=== PATIENT | female | born 2000 ===

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

== ENCOUNTER → 2022-09-15 | Outpatient (CLI) | payer OTHER ==
[2022-09-15 12:06] LABS: Source, Urine Clean Catch
[2022-09-15 15:25] LABS: White Blood Cells, Urine 25-50 /hpf (0-5)
[2022-09-15 15:26] LABS: Bacteria Mod /hpf; Red Blood Cells, Urine 0-2 /hpf (0-2); Renal Epithelial Few /hpf (0-Rare); Squamous Epithelial Cells Mod /hpf (Few)
[2022-09-15 15:31] LABS: U Amphetamine Screen Not Detected; U Barbituate Screen Not Detected; U Benzodiazapine Screen Not Detected; U Buprenorphine Screen Not Detected; U Cannabinoids Screen Not Detected; U Cocaine Screen Not Detected; U Methadone Screen Not Detected; U Methamphetamine Screen Not Detected; U Opiates Screen Not Detected; U Oxycodone Screen Not Detected; U Phencyclidine Screen Not Detected; U Propoxyphene Screen Not Detected
== END ==
LOC: LAB 12:01 → LAB SHORT 12:01
PROVIDERS: Advanced Practice Midwife
DX: Z34.01 Encounter for supervision of normal first pregnancy, first trimester (principal); Z3A.00 Weeks of gestation of pregnancy not specified
CPT/HCPCS: 81015; 87086

== ENCOUNTER → 2022-10-12 | Outpatient (CLI) | payer OTHER ==
[2022-10-14 01:11] LABS: CHLAMYDIA TRACHOMATIS, NAA Negative (Negative)
== END | disposition home or self-care (01) ==
LOC: LAB SHORT 13:17 → LAB 13:17
PROVIDERS: Advanced Practice Midwife
DX: Z11.3 Encounter for screening for infections with a predominantly sexual mode of transmission (principal)
CPT/HCPCS: 87491; 87591

== ENCOUNTER → 2022-10-22 | Outpatient (CLI) | payer OTHER | END | disposition home or self-care (01) | LOC: LAB 13:28 → LAB SHORT 13:28 | DX: R82.90 Unspecified abnormal findings in urine (principal) | CPT/HCPCS: 87086 ==

== ENCOUNTER → 2023-03-31 | Outpatient (CLI) | payer OTHER ==
[2023-04-01 10:34] LABS: Candida species (DNA Probe) Negative (NEGATIVE); G. vaginalis (DNA Probe) Positive (NEGATIVE); T. vaginalis (DNA Probe) Negative (NEGATIVE)
== END | disposition home or self-care (01) ==
LOC: LAB SHORT 12:00 → LAB 12:00
PROVIDERS: Advanced Practice Midwife
DX: O09.93 Supervision of high risk pregnancy, unspecified, third trimester (principal); N89.8 Other specified noninflammatory disorders of vagina
CPT/HCPCS: 87081; 87150; 87480; 87510; 87660

== ENCOUNTER → 2023-04-15 | Outpatient (CLI) | payer OTHER ==
[2023-04-16 10:09] LABS: Candida species (DNA Probe) Negative (NEGATIVE); G. vaginalis (DNA Probe) Negative (NEGATIVE); T. vaginalis (DNA Probe) Negative (NEGATIVE)
== END ==
LOC: LAB SHORT 16:49 → LAB 16:49
PROVIDERS: Advanced Practice Midwife
DX: N89.8 Other specified noninflammatory disorders of vagina (principal)
CPT/HCPCS: 87480; 87510; 87660

== ENCOUNTER 2023-04-20 05:56 | Inpatient (IN) | payer OTHER ==
[2023-04-20] VITALS (44 sets, daily range): BP systolic 113–157; BP diastolic 55–99
[~2023-04-20] VITALS: Ht 160 cm; Wt 72.5 kg
[2023-04-20 06:52] LABS: BASOPHILS ABSOLUTE AUTO 0.05 K/mm3 (0.00-0.23); BASOPHILS PERCENT AUTO 1 % (0-2); EOSINOPHILS PERCENT AUTO 3 % (0-6); Hematocrit 36.6 % (33.0-51.0); Hemoglobin 12.1 g/dL (11.5-16.0); IMMATURE GRAN ABSOLUTE AUTO 0.14 K/mm3 (0.00-0.10); IMMATURE GRAN PERCENT AUTO 2 % (0-1); LYMPHOCYTES ABSOLUTE AUTO 1.39 K/mm3 (0.84-5.20); LYMPHOCYTES PERCENT AUTO 17 % (21-46); MONOCYTES ABSOLUTE AUTO 0.52 K/mm3 (0.16-1.47); MONOCYTES PERCENT AUTO 7 % (4-13); Mean Corpuscular HGB 28.8 pg (26.0-34.0); Mean Corpuscular HGB Conc 33.1 g/dL (31.5-36.5); Mean Corpuscular Volume 87 fL (80-100); NEUTROPHILS ABSOLUTE AUTO 5.73 K/mm3 (1.96-9.15); NEUTROPHILS PERCENT AUTO 71 % (41-73); Platelet Count 147 K/mm3 (150-400); RDW Coefficient Variation 14.6 % (11.7-14.2); RDW Standard Deviation 46.1 fL (35.1-46.3); White Blood Cell Count 8.03 K/mm3 (4.00-11.30)
[2023-04-20] MEDS ORDERED: PRENATAL TABLE1 EAC2 PO (07:44)
--- NOTE | 2023-04-20 18:53 | NUR ---
PT HAS TO VOID, PUT TOWEL WITH PADS UNDER PT, PT RT LEG IS STILL NUMB, ABLE TO LIFT OFF BED, BUT NOT WEIGHT BEARING YET
[2023-04-21 00:48] VITALS: BP 116/58
[2023-04-21 03:36] VITALS: BP 121/56
[2023-04-21 03:41] VITALS: BP 98/52
--- NOTE | 2023-04-21 03:50 | NUR ---
PT CALLED RN TO ROOM WITH COMPLAINTS OF CHEST TIGHTNESS WHEN STANDING/WALKING. RN HAD PT LAY DOWN, RN APPLIED SPO2 MONITOR AND CHECKED BP, LUNG AND HEART SOUNDS NORMAL. PT REPORTS FEELING NORMAL WHEN LAYING/SITTING DOWN.
[2023-04-21 06:08] LABS: BASOPHILS ABSOLUTE AUTO 0.05 K/mm3 (0.00-0.23); BASOPHILS PERCENT AUTO 0 % (0-2); EOSINOPHILS ABSOLUTE AUTO 0.17 K/mm3 (0.00-0.68); EOSINOPHILS PERCENT AUTO 2 % (0-6); Hematocrit 28.9 % (33.0-51.0); Hemoglobin 9.5 g/dL (11.5-16.0); IMMATURE GRAN ABSOLUTE AUTO 0.15 K/mm3 (0.00-0.10); IMMATURE GRAN PERCENT AUTO 1 % (0-1); LYMPHOCYTES ABSOLUTE AUTO 1.73 K/mm3 (0.84-5.20); LYMPHOCYTES PERCENT AUTO 15 % (21-46); MONOCYTES ABSOLUTE AUTO 0.86 K/mm3 (0.16-1.47); MONOCYTES PERCENT AUTO 8 % (4-13); Mean Corpuscular HGB 28.9 pg (26.0-34.0); Mean Corpuscular HGB Conc 32.9 g/dL (31.5-36.5); Mean Corpuscular Volume 88 fL (80-100); Mean Platelet Volume 12.3 fL (9.1-12.4); NEUTROPHILS ABSOLUTE AUTO 8.33 K/mm3 (1.96-9.15); NEUTROPHILS PERCENT AUTO 74 % (41-73); Platelet Count 125 K/mm3 (150-400); RDW Coefficient Variation 14.8 % (11.7-14.2); RDW Standard Deviation 47.4 fL (35.1-46.3); Red Blood Cell Count 3.29 M/mm3 (3.80-5.20); White Blood Cell Count 11.29 K/mm3 (4.00-11.30)
[2023-04-21 07:30] VITALS: BP 126/66
--- NOTE | 2023-04-21 07:38 | NUR ---
PT UP AMBULATING IN ROOM. STATES SHE FEELS A LITTLE BIT BETTER THIS MORNING BUT IS STILL HAVING CHEST TIGHTNESS WHEN SHE IS UP AMBULATING. VSS. BIOX 99%. LUNG SOUNDS CLEAR. WILL UPDATE MD WITH MORNING ROUNDS.
[2023-04-21 11:38] VITALS: BP 111/53
[2023-04-21] MEDS ORDERED: ACET500 (16:33)
[2023-04-21] MEDS ORDERED: IBUP800 PO (16:33)
[2023-04-21 17:00] VITALS: BP 119/57
--- NOTE | 2023-04-21 17:05 | NUR ---
DISCHARGE READY TO DC HOME. CARING FOR SELF AND BABY INDEPENDANTLY. VSS. AFEBRILE. LOCHIA SCANT. VERBALIZE UNDERSTANDING OF DC INSTRUCTIONS AND FOLLOW UP APPOINTMENTS. NO QUESTIONS OR CONCERNS. STABLE.
== END 2023-04-21 17:40 | disposition home or self-care (01) | DRG 807 ==
LOC: OBS 05:56 → BC 05:58 → OBS 06:02 → BC 06:04
PROVIDERS: Family Medicine; ADMIT Advanced Practice Midwife
PROC: 10E0XZZ Delivery of Products of Conception, External Approach (ICD-10-PCS; principal; 2023-04-20)
PROC: 0HQ9XZZ Repair Perineum Skin, External Approach (ICD-10-PCS; 2023-04-20)
PROC: 3E0R3BZ Introduction of Anesthetic Agent into Spinal Canal, Percutaneous Approach (ICD-10-PCS; 2023-04-20)
PROC: 00HU33Z Insertion of Infusion Device into Spinal Canal, Percutaneous Approach (ICD-10-PCS; 2023-04-20)
PROC: 3E033VJ Introduction of Other Hormone into Peripheral Vein, Percutaneous Approach (ICD-10-PCS; 2023-04-20)
PROC: 10907ZC Drainage of Amniotic Fluid, Therapeutic from Products of Conception, Via Natural or Artificial Opening (ICD-10-PCS; 2023-04-20)
DX: O75.3 Other infection during labor (principal); Z37.0 Single live birth; O99.62 Diseases of the digestive system complicating childbirth; O77.0 Labor and delivery complicated by meconium in amniotic fluid; O66.0 Obstructed labor due to shoulder dystocia; K40.90 Unilateral inguinal hernia, without obstruction or gangrene, not specified as recurrent; O70.0 First degree perineal laceration during delivery; O90.81 Anemia of the puerperium; D64.9 Anemia, unspecified; Z3A.39 39 weeks gestation of pregnancy; Z88.2 Allergy status to sulfonamides; Z82.49 Family history of ischemic heart disease and other diseases of the circulatory system; Z98.890 Other specified postprocedural states; Z79.899 Other long term (current) drug therapy
CPT/HCPCS: 36415; 51702; 85025; 86850; 86900; 86901; A9270; J1885; J2405; J2590; J7120

== ENCOUNTER → 2023-11-25 | Outpatient (CLI) | payer BC ==
[~2023-11-25] MED LIST changes: +ACET500; +IBUP800 PO; +PRENATAL TABLE1 EAC2 PO
== END ==
LOC: LAB SHORT 13:56 → LAB 13:56
PROVIDERS: Advanced Practice Midwife
DX: Z01.419 Encounter for gynecological examination (general) (routine) without abnormal findings (principal)
CPT/HCPCS: G0123

== ENCOUNTER 2024-10-21 02:48 | Emergency (ER) | payer BC ==
[~2024-10-21] VITALS: Ht 157.5 cm; Wt 71.7 kg
[2024-10-21 02:55] VITALS: BP 135/76
== END 2024-10-21 04:33 | disposition home or self-care (01) ==
LOC: ER 02:48
DX: O20.0 Threatened abortion (principal); Z3A.21 21 weeks gestation of pregnancy; Z79.899 Other long term (current) drug therapy; Z88.2 Allergy status to sulfonamides
CPT/HCPCS: 76815; 99284-25

== ENCOUNTER → 2025-02-06 | Outpatient (CLI) | payer BC, OTHER | LOC: LAB SHORT 17:04 → LAB 17:04 | DX: Z34.90 Encounter for supervision of normal pregnancy, unspecified, unspecified trimester (principal) | CPT/HCPCS: 87081; 87150 ==

== ENCOUNTER 2025-02-11 22:08 | Inpatient (IN) | payer BC, OTHER ==
[~2025-02-11] VITALS: Ht 157.5 cm; Wt 84.5 kg
[2025-02-11 22:27] VITALS: BP 142/96
[2025-02-11 22:33] VITALS: BP 126/82
[2025-02-12] VITALS (11 sets, daily range): BP systolic 111–142; BP diastolic 58–88
[2025-02-12] MEDS ORDERED: Lactated Ringer's 1,000 ML IV PRN ×2 (03:10)
[2025-02-12] MEDS ORDERED: Lactated Ringer's 1,000 ML IV ONE (03:10)
[2025-02-12] MEDS ORDERED: Acetaminophen 500 MG Tab PO PRN (03:10)
[2025-02-12] MEDS ORDERED: Misoprostol 200 MCG Tab BC PRN (03:10)
[2025-02-12] MEDS ORDERED: Tranexamic Acid 1,000 MG in NS 100 ML IV SCH (03:10)
[2025-02-12] MEDS ORDERED: Ondansetron HCl 2 MG / ML 2ML Vial IV PRN (03:10)
[2025-02-12] MEDS ORDERED: Oxytocin 10 Unit / ML Vial IM PRN (03:10)
[2025-02-12] MEDS ORDERED: OXYTOCIN/RINGER'S LACTATE 500 ML IV PRN (03:10)
[2025-02-12] MEDS ORDERED: ePHEDrine Sulfate 50 MG/ML 1ML Injection XX PRN (03:10)
[2025-02-12] MEDS ORDERED: Carboprost Tromethamine 250 MCG/ML 1ML Amp IM PRN (03:10)
[2025-02-12] MEDS ORDERED: Misoprostol 200 MCG Tab PR PRN (03:10)
[2025-02-12] MEDS ORDERED: Methylergonovine Maleate 0.2MG / ML 1ML Amp IM PRN (03:10)
[2025-02-12] MEDS ORDERED: FentaNYL 2mcg/ml-Bup 0.1% Epd 250 ML EPI PRN (03:10)
[2025-02-12] MEDS ORDERED: FentaNYL Citrate 50 MCG/ML 2 ML Injection IV PRN (03:15)
[2025-02-12] MEDS ORDERED: Calcium Carbonate 500 MG Tab Chew PO PRN (03:15)
[2025-02-12 04:19] LABS: BASOPHILS ABSOLUTE AUTO 0.03 K/mm3 (0.00-0.23); BASOPHILS PERCENT AUTO 0 % (0-2); EOSINOPHILS ABSOLUTE AUTO 0.17 K/mm3 (0.00-0.68); EOSINOPHILS PERCENT AUTO 2 % (0-6); Hematocrit 35.7 % (33.0-51.0); Hemoglobin 11.4 g/dL (11.5-16.0); IMMATURE GRAN ABSOLUTE AUTO 0.07 K/mm3 (0.00-0.10); IMMATURE GRAN PERCENT AUTO 1 % (0-1); LYMPHOCYTES ABSOLUTE AUTO 2.11 K/mm3 (0.84-5.20); LYMPHOCYTES PERCENT AUTO 28 % (21-46); MONOCYTES ABSOLUTE AUTO 0.56 K/mm3 (0.16-1.47); MONOCYTES PERCENT AUTO 7 % (4-13); Mean Corpuscular HGB 25.7 pg (26.0-34.0); Mean Corpuscular HGB Conc 31.9 g/dL (31.5-36.5); Mean Corpuscular Volume 80 fL (80-100); Mean Platelet Volume 12.9 fL (9.1-12.4); NEUTROPHILS ABSOLUTE AUTO 4.69 K/mm3 (1.96-9.15); NEUTROPHILS PERCENT AUTO 62 % (41-73); Platelet Count 153 K/mm3 (150-400); RDW Coefficient Variation 14.4 % (11.7-14.2); RDW Standard Deviation 41.7 fL (35.1-46.3); Red Blood Cell Count 4.44 M/mm3 (3.80-5.20); White Blood Cell Count 7.63 K/mm3 (4.00-11.30)
[2025-02-12] MEDS ORDERED: FAMO20 PO (04:25)
[2025-02-12] MEDS ORDERED: Zolpidem Tartrate 10 MG Tab PO ONE (14:00)
== END 2025-02-12 14:54 | disposition home or self-care (01) | DRG 833 ==
LOC: OBS 22:08 → BC 22:09 → OBS 02-12 02:53 → BC 02-12 02:55
PROVIDERS: ADMIT Family Medicine
DX: O47.1 False labor at or after 37 completed weeks of gestation (principal); Z3A.37 37 weeks gestation of pregnancy; Z88.2 Allergy status to sulfonamides
CPT/HCPCS: 36415; 59025; 81003; 85025; 86850; 86900; 86901; 99214; A9270; J2405; J3010; J7120

== ENCOUNTER 2025-02-20 08:45 | Inpatient (IN) | payer BC, OTHER ==
[2025-02-20] VITALS (32 sets, daily range): BP systolic 107–186; BP diastolic 51–102
[~2025-02-20] VITALS: Ht 157.5 cm; Wt 82.5 kg
[~2025-02-20 08:45] MED LIST changes: +FAMO20 PO
[2025-02-20] MEDS ORDERED: OXYTOCIN/RINGER'S LACTATE 500 ML IV ONE (08:53)
[2025-02-20] MEDS ORDERED: Lactated Ringer's 1,000 ML IV ONE (08:53)
[2025-02-20] MEDS ORDERED: Lactated Ringer's 1,000 ML IV SCH ×3 (09:05→13:55)
[2025-02-20] MEDS ORDERED: Acetaminophen 500 MG Tab PO PRN (09:05)
[2025-02-20] MEDS ORDERED: FentaNYL 2mcg/ml-Bup 0.1% Epd 250 ML EPI PRN (09:05)
[2025-02-20] MEDS ORDERED: Ondansetron HCl 2 MG / ML 2ML Vial IV PRN (09:05)
[2025-02-20] MEDS ORDERED: OXYTOCIN/RINGER'S LACTATE 500 ML IV PRN (09:05)
[2025-02-20] MEDS ORDERED: Carboprost Tromethamine 250 MCG/ML 1ML Amp IM PRN (09:05)
[2025-02-20] MEDS ORDERED: Misoprostol 200 MCG Tab BC PRN ×2 (09:05→13:55)
[2025-02-20] MEDS ORDERED: ePHEDrine Sulfate 50 MG/ML 1ML Injection XX PRN (09:05)
[2025-02-20] MEDS ORDERED: Misoprostol 200 MCG Tab PR PRN (09:05)
[2025-02-20] MEDS ORDERED: Lactated Ringer's 1,000 ML IV PRN (09:05)
[2025-02-20] MEDS ORDERED: Methylergonovine Maleate 0.2MG / ML 1ML Amp IM PRN ×2 (09:05→13:55)
[2025-02-20] MEDS ORDERED: Oxytocin 10 Unit / ML Vial IM PRN (09:05)
[2025-02-20] MEDS ORDERED: Calcium Carbonate 500 MG Tab Chew PO SCH (09:10)
[2025-02-20] MEDS ORDERED: Tranexamic Acid 100 ML IV SCH (09:15)
[2025-02-20 09:23] LABS: BASOPHILS ABSOLUTE AUTO 0.04 K/mm3 (0.00-0.23); BASOPHILS PERCENT AUTO 1 % (0-2); EOSINOPHILS ABSOLUTE AUTO 0.15 K/mm3 (0.00-0.68); EOSINOPHILS PERCENT AUTO 2 % (0-6); Hematocrit 41.3 % (33.0-51.0); Hemoglobin 13.2 g/dL (11.5-16.0); IMMATURE GRAN ABSOLUTE AUTO 0.07 K/mm3 (0.00-0.10); IMMATURE GRAN PERCENT AUTO 1 % (0-1); LYMPHOCYTES ABSOLUTE AUTO 1.96 K/mm3 (0.84-5.20); LYMPHOCYTES PERCENT AUTO 27 % (21-46); MONOCYTES ABSOLUTE AUTO 0.51 K/mm3 (0.16-1.47); MONOCYTES PERCENT AUTO 7 % (4-13); Mean Corpuscular HGB 25.5 pg (26.0-34.0); Mean Corpuscular Volume 80 fL (80-100); Mean Platelet Volume 13.3 fL (9.1-12.4); NEUTROPHILS ABSOLUTE AUTO 4.68 K/mm3 (1.96-9.15); NEUTROPHILS PERCENT AUTO 63 % (41-73); Platelet Count 157 K/mm3 (150-400); RDW Coefficient Variation 15.2 % (11.7-14.2); RDW Standard Deviation 43.4 fL (35.1-46.3); Red Blood Cell Count 5.17 M/mm3 (3.80-5.20); White Blood Cell Count 7.41 K/mm3 (4.00-11.30)
[2025-02-20] MEDS ORDERED: Lanolin Cream TOP PRN (13:55)
[2025-02-20] MEDS ORDERED: Ibuprofen 400 MG Tab PO PRN (14:00)
[2025-02-20] MEDS ORDERED: Benzocaine Topical Anesthetic Spray 60GM TOP PRN (14:00)
[2025-02-20] MEDS ORDERED: OXYTOCIN/RINGER'S LACTATE 500 ML IV SCH (14:00)
[2025-02-20] MEDS ORDERED: Docusate Sodium 100 MG Cap PO PRN (14:00)
[2025-02-20] MEDS ORDERED: Acetaminophen 325 MG TABLET PO PRN (14:00)
[2025-02-20] MEDS ORDERED: Witch Hazel/Glycerin PADS TOP PRN (14:00)
[2025-02-20] MEDS ORDERED: Ketorolac Tromethamine 30mg Vial IV PRN (14:05)
--- NOTE | 2025-02-20 21:56 | NUR ---
assisted pt to restroom. Pt stated she was lightheaded once she was sitting on the toilet. but she said it resolved as she sat on the toilet. Patient back to bed and reports not lightheadedness or pain issues.
--- NOTE | 2025-02-20 22:09 | NUR ---
weighed 1 white kevon pad total 164.
[2025-02-21 02:13] VITALS: BP 130/70
[2025-02-21 07:35] VITALS: BP 116/63
[2025-02-21] MEDS ORDERED: Prenatal Vit/FE Fumarate/FA 1 Tab PO SCH (09:00)
[2025-02-21 12:44] VITALS: BP 126/58
[2025-02-21 15:08] VITALS: BP 117/72
== END 2025-02-21 15:35 | disposition home or self-care (01) | DRG 807 ==
LOC: OBS 08:45 → BC 09:02
PROVIDERS: ADMIT Advanced Practice Midwife
PROC: 10E0XZZ Delivery of Products of Conception, External Approach (ICD-10-PCS; principal; 2025-02-20)
PROC: 4A1HXCZ Monitoring of Products of Conception, Cardiac Rate, External Approach (ICD-10-PCS; 2025-02-20)
DX: O80 Encounter for full-term uncomplicated delivery (principal); Z37.0 Single live birth; Z3A.38 38 weeks gestation of pregnancy; Z82.49 Family history of ischemic heart disease and other diseases of the circulatory system; Z88.2 Allergy status to sulfonamides
CPT/HCPCS: 36415; 51702; 85025; 86850; 86900; 86901; A9270; J1885; J2590; J7120

== ENCOUNTER 2025-02-24 08:07 | Emergency (ER) | payer BC, OTHER ==
[~2025-02-24] VITALS: Ht 157.5 cm; Wt 77.1 kg
[2025-02-24 09:37] LABS: BASOPHILS ABSOLUTE AUTO 0.05 K/mm3 (0.00-0.23); BASOPHILS PERCENT AUTO 1 % (0-2); EOSINOPHILS ABSOLUTE AUTO 0.22 K/mm3 (0.00-0.68); EOSINOPHILS PERCENT AUTO 2 % (0-6); Hematocrit 33.1 % (33.0-51.0); Hemoglobin 10.1 g/dL (11.5-16.0); IMMATURE GRAN ABSOLUTE AUTO 0.27 K/mm3 (0.00-0.10); IMMATURE GRAN PERCENT AUTO 3 % (0-1); LYMPHOCYTES ABSOLUTE AUTO 1.11 K/mm3 (0.84-5.20); LYMPHOCYTES PERCENT AUTO 10 % (21-46); MONOCYTES ABSOLUTE AUTO 0.62 K/mm3 (0.16-1.47); MONOCYTES PERCENT AUTO 6 % (4-13); Mean Corpuscular HGB Conc 30.5 g/dL (31.5-36.5); Mean Corpuscular Volume 85 fL (80-100); Mean Platelet Volume 12.6 fL (9.1-12.4); NEUTROPHILS PERCENT AUTO 79 % (41-73); NRBC ABSOLUTE 0.03 K/mm3 (0.00-0.02); NRBC Auto 0.3 /100 WBC (0.0-0.2); Platelet Count 163 K/mm3 (150-400); RDW Coefficient Variation 16.2 % (11.7-14.2); Red Blood Cell Count 3.89 M/mm3 (3.80-5.20); White Blood Cell Count 10.77 K/mm3 (4.00-11.30)
[2025-02-24 09:49] LABS: Bun/Creatinine Ratio 32.4 (12.0-20.0); Calcium, Blood 8.8 mg/dL (8.5-10.1); Creatinine, Blood 0.53 mg/dL (0.40-1.00); Potassium, Blood 4.1 mmol/L (3.5-5.5)
[2025-02-24 11:11] LABS: Source, Urine Clean Catch
[2025-02-24 11:33] LABS: Appearance, Urine Cloudy (Clear); Bilirubin, Urine Neg (Neg); Blood, Urine 5+ (Neg); Color, Urine Red (P-Yellow); Glucose Qualitative, Urine Neg (Neg); Ketones, Urine Neg (Neg); Leukocyte Esterase, Urine 3+ (Neg); Nitrite, Urine Neg (Neg); Protein, Urine 3+ (Neg); Specific Gravity, Urine 1.015 (1.003-1.022); Urobilinogen, Urine NORM (Normal)
[2025-02-24] MEDS ORDERED: ACET500 PO (11:37)
[2025-02-24 11:48] LABS: Bacteria Mod /hpf; Red Blood Cells, Urine TNTC /hpf (0-2); Squamous Epithelial Cells Few /hpf (Few); White Blood Cells, Urine 25-50 /hpf (0-5)
[2025-02-24 11:55] VITALS: BP 132/78
== END 2025-02-24 11:56 | disposition home or self-care (01) ==
LOC: ER 08:07
PROVIDERS: Emergency Medicine
DX: O72.1 Other immediate postpartum hemorrhage (principal); N64.4 Mastodynia; Z88.2 Allergy status to sulfonamides; Z79.899 Other long term (current) drug therapy
CPT/HCPCS: 76856; 80048; 81001; 85025; 87086; 99284-25